=== PATIENT | female | born 1960 | race Caucasian/White ===

== ENCOUNTER 2021-06-12 13:21 | Emergency (ER) | payer MEDICARE, MEDICAID, SELFPAY ==
--- NOTE | 2021-06-12 13:30 | ED_ITS ---
HPI - CPR General Chief Complaint: Cardiac Arrest/CPR Stated Complaint: CARDIAC ARREST Time Seen by Provider: 06/12/21 13:31 Source: EMS Mode of arrival: EMS History of Present Illness HPI narrative: initial time of call 1241pm - EMS notes on scene about 35+ minutes bystanders gave 4mg IN adalid JALLOH complaint: found unresponsive (last seen yesterday ) Onset (ago): unknown Timing confirmed by: other (?house mates) Place: home Bystander CPR performed: No AED applied by bystander/first line supervisor: No Shock advised: No Initial findings in the field: unresponsive and no respirations ROSC in the field: No Associated injuries: No Known history of: other (depression) Treatments prior to arrival: intubation (7.0), BMV, chest compressions, epi nephrine mgs # (3) and other (BS 70s) Related Data Allergies Allergy/AdvReac Type Severity Reaction Status Date / Time No Known Allergies Allergy Verified 06/12/21 13:35 Review of Systems Review of Systems: ROS unable to be obtained due to unresponsive [facility] Past Medical History Medical History (Updated 06/12/21 @ 13:42 by Yadira Schneider DO) Depression Social History Social History (Updated 06/12/21 @ 13:40 by Yadira Schneider DO) Patient Tobacco Use Status: Tobacco use Unknown Use of substances other than those prescribed or required for medical reasons: Unknown Advance Directives: No Advance Directives Information Provided: No Physical Exam Vital Signs: Appearance: ongoing CPR unresponsive. Severe distress Eyes: fixed and dilated ENT: intubated secretions in airway 7.0 tube Neck: Normal inspection. short neck CVS: no spontaneous cardiac activity, young in place, good femoral pulse with CPR Respiratory: intubated, no spontaneous respirations Abdomen: Soft and nontender. no trauma noted Skin: Cold to touch, pale, dusky Extremities: No lower extremity edema. no obvious track palomino noted Neuro: unresponsive, ongoing CPR no response to any stimuli Course Course Course Narrative: accepted by ME - Hermilo Haines case # [id number] daughter notified she overdose didn't she very upset didn't elaborate BS was 52 was given dextrose MDM - Cardiac Arrest/CPR MDM Narrative Medical decision making narrative: 61 yo female with unknown history EMS noted initial call for being found down was at 1241pm she comes to our ED 45+ min later asystole the entire time received intubation, CPR, epi x 3, BS 70s in field, narcan 8mg no response no ROSC, asystole the entire time. On arrival with 45+ minutes of CPR and last seen yesterday without ROSC and no activity on bedside ECHO resuscitative efforts were deemed futile time of 128pm. Lab Data Labs: Lab Results 06/12/21 Range/Units 13:24 POC Glucose 51 L* (60-115) mg/dL Procedures Procedure Narrative Procedure Narrative: bedside ECHO 128pm - no cardiac activity standstill noted even after epi Discharge Plan Discharge Clinical Impression: Cardiac arrest Patient Disposition:
--- NOTE | 2021-06-12 13:47 | PC.NURSE ---
call placed to tissue screening, they declined the pt
[2021-06-12 13:57] LABS: Glucose, Whole Blood 51 mg/dL (60-115)
--- NOTE | 2021-06-12 15:22 | PC.NURSE ---
Received report from [place] GANN. waiting for form to be completed prior to moving [place] [facility] [place]
== END 2021-06-12 19:24 | disposition expired ==
PROVIDERS: Emergency Provider Emergency Medicine; PCP Nurse Practitioner Family
DX: I46.9 Cardiac arrest, cause unspecified (principal)
CPT/HCPCS: 82947; 96374; 99282; 99285; J0171